=== PATIENT | male | born 1995 | race Caucasian/White ===

== ENCOUNTER 2023-04-24 05:07 | Emergency (ER) | payer OTHER, SELFPAY ==
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
[2023-04-24 05:09] VITALS: BP 100/60; PULSE 98; O2SAT 99
[2023-04-24 05:18] VITALS: BP 128/76; PULSE 87; RESP 16; O2SAT 96; BMI 18.5
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
[2023-04-24] MEDS: Ibuprofen 400 MG TABLET PO (05:43)
[2023-04-24] MEDS: Acetaminophen 325 MG TABLET 975 MG PO (05:43)
== END 2023-04-24 06:36 | disposition home or self-care (01) ==
PROVIDERS: Emergency Provider Student in an Organized Health Care Education/Training Program
DX: S00.12XA Contusion of left eyelid and periocular area, initial encounter (principal); H57.12 Ocular pain, left eye; F10.129 Alcohol abuse with intoxication, unspecified; R51.9 Headache, unspecified; Y90.9 Presence of alcohol in blood, level not specified; Y04.2XXA Assault by strike against or bumped into by another person, initial encounter; Y93.9 Activity, unspecified; Y92.9 Unspecified place or not applicable; Y99.9 Unspecified external cause status
CPT/HCPCS: 70450; 70486; 99283; 99284